=== PATIENT | male | born 1960 | race Caucasian/White ===

== ENCOUNTER → 2024-03-09 11:38 | Outpatient (CLI) | payer MEDICAID, SELFPAY ==
--- NOTE | 2024-03-09 10:15 | DI.CT_ITS ---
Exam(s) CT NECK CHEST W EXAM: CT NECK CHEST W CLINICAL HISTORY: neck swelling, supraclavicular nodule please IDR22.1 SWELLING M54.2 TECHNIQUE: Imaging Protocol: Axial computed tomography images with coronal and sagittal reformatted images were created and reviewed CONTRAST MATERIAL: Intravenous: Omnipaque 350 Contrast volume:structured data ml Oral: no COMPARISON: CR RIGHT SHOULDER COMPLETE from 03/07/2016 FINDINGS: Neck: Parotids/submandibular/thyroid gland: Normal. Lymphadenopathy: No enlarged lymph nodes identified.. Carotids/Jugular: Within normal limits. Soft tissues: The floor the mouth is unremarkable. The epiglottis and vocal cords are within normal limits. Bones: No fracture. No lytic or blastic lesions. Degenerative changes in the cervical spine. Visualized portions of the brain and orbits are unremarkable. Chest: Tracheobronchial tree: Patent where visualized. Mediastinum and Karen: No dominant adenopathy or fluid collection. Pulmonary parenchyma: No consolidation or dominant measurable mass. Pleura: No effusion or pneumothorax. Heart/Aorta: Thoracic aorta non-dilated. The heart is not dilated. No coronary artery calcifications are seen. Pulmonary arteries: No evidence of emboli. Bones: No fracture. No lytic or blastic lesions. Soft tissues: In marker was placed over the palpable abnormality the medial supraclavicular region. No abnormality seen in location. ABDOMEN: Liver: Enlarged. Hepatic steatosis. No measurable mass. Gallbladder and biliary tract: No radiodense calculus or dilation. Pancreas: Normal density, no abnormal calcifications or inflammatory process. Spleen: Normal. Upper portion of kidneys: Normal size, contour and axis. No radiodense stones or obstructive uropathy . No suspicious masses seen. Adrenal glands: No masses seen. Abdominal Aorta: Abdominal portion non-dilated. IMPRESSION: No abnormality identified in the neck and chest. RADIATION DOSE DELIVERED: 1,158.19mGy.cm Total DLP DATA REPOSITORY: All CT scans at this facility are submitted to the National Radiology Data Registry (NRDR) Dose Index Registry (DIR) with the [employer] (ACR). RADIATION OPTIMIZATION: All CT scans at this facility use at least one of these dose optimization te chniques: automated exposure control; mA and/or kV adjustment per patient size (includes targeted exa ms where dose is matched to clinical indication); or iterative reconstruction.
[2024-03-09 10:56] LABS: Abs Immature Grans 0.04 10^3/uL (0.0-0.06); Absolute Basophil Count 0.07 10^3/uL (0.0-0.2); Absolute Eosinophil Count 0.19 10^3/uL (0.0-0.7); Absolute Monocyte Count 0.42 10^3/uL (0.1-0.8); Absolute Neutrophil Count 4.45 10^3/uL (1.2-6.7); Basophils % 0.9 %; Eosinophils % 2.6 %; HCT 46.5 % (40.0-50.0); HGB 15.7 g/dL (13.5-17.5); Immature Grans % 0.5 %; Lymphocytes % 29.9 %; MCH 33.1 pg (27.0-33.0); MCHC 33.8 % (32.0-36.0); MCV 98 fL (80-95); Monocytes % 5.7 %; Neutrophils % 60.4 %; Platelet Count 153 10^3/uL (130-400); RBC 4.75 10^6/uL (4.36-5.78); RDW 13.7 % (11.8-14.1); WBC 7.37 10^3/uL (4.4-10.8)
[2024-03-09 11:31] LABS: ALT 25 U/L (16-63); AST 20 U/L (15-37); Alkaline Phosphatase 64 U/L (46-116); Anion Gap 6.6 mmol/L (3-11); BUN 10 mg/dL (7-18); Bilirubin, Total 0.6 mg/dL (0.2-1.0); CO2 27.4 mmol/L (21.0-32.0); CREATININE 0.9 mg/dL (0.70-1.30); Chloride 104 mmol/L (98-107); Estimated GFR 95.97 (mL/min/1.73m2); Glucose 115 mg/dL (74-106); Potassium 4.4 mmol/L (3.5-5.1); Sodium 138 mmol/L (136-145); Total Protein 8.7 g/dL (6.4-8.2)
[2024-03-09] MEDS: Normal Saline - Diluent 50 ML VIAL IJ (12:11)
[2024-03-09] MEDS: Omnipaque 350 MG/ML 100 ML BTL IJ (12:13)
== END ==
PROVIDERS: PCP Family Medicine; Visit Provider Physician Assistant
DX: R22.1 Localized swelling, mass and lump, neck (principal); M54.2 Cervicalgia
CPT/HCPCS: 70491; 80053; 71260; 84443; 85025; J3490

== ENCOUNTER → 2024-03-10 12:56 | Outpatient (CLI) | payer MEDICAID, SELFPAY ==
--- NOTE | 2024-03-10 09:30 | DI.US_ITS ---
Exam(s) US SOFT TISSUE HEAD OR NECK EXAM: US SOFT TISSUE HEAD OR NECK CLINICAL HISTORY: neck/supraclavicular neck swelling. ID. CT done R22.1 NECK SWELLING. TECHNIQUE: Ultrasound was performed using standard protocol. COMPARISON: CT CT NECK CHEST W from 03/09/2024 FINDINGS: Sonographic assessment utilizing grayscale and color Doppler imaging was performed and targeted to th e area of clinical concern. There is no evidence of a subcutaneous nodule to correspond to the palpable abnormality. There is a 1.8 x 1.7 x 1.9 cm isoechoic nodule in the right lobe of the thyroid gland. IMPRESSION: 1. No subcutaneous mass is seen to correspond to the palpable area as identified by the patient. 2. There does appear to be a 1.8 x 1.7 x 1.9 cm isoechoic nodule within the right lobe of the thyroid gland. A dedicated thyroid ultrasound may be considered for further evaluation. DATA REPOSITORY:
== END ==
PROVIDERS: PCP Family Medicine; Visit Provider Physician Assistant
DX: R22.1 Localized swelling, mass and lump, neck (principal); E04.1 Nontoxic single thyroid nodule
CPT/HCPCS: 76536

== ENCOUNTER → 2024-03-18 14:49 | Outpatient (CLI) | payer MEDICAID, SELFPAY ==
--- NOTE | 2024-03-18 14:15 | DI.RAD_ITS ---
Exam(s) XR FINGER RT INDEX EXAM: XR FINGER RT INDEX CLINICAL HISTORY: finger injury, proximal pain r/o open fx S69.90XA INJURY. TECHNIQUE: 2D digital imaging was performed of the right finger. Three views were obtained. PA/AP, oblique, and lateral views were obtained. COMPARISON: No exams were available for comparison FINDINGS: BONES: No acute fracture is present. No bony destructive lesion is seen. JOINTS: No dislocation present. SOFT TISSUE: No radiopaque foreign body is identified. No subcutaneous gas is seen. There is a well corticated osseous density seen at the dorsum of the finger which appears chronic. IMPRESSION: No evidence of acute fracture, dislocation, or subluxation. DATA REPOSITORY: RADIATION DOSE DELIVERED:
== END ==
PROVIDERS: PCP Family Medicine; Visit Provider Physician Assistant
DX: S69.91XA Unspecified injury of right wrist, hand and finger(s), initial encounter (principal)
CPT/HCPCS: 73140

== ENCOUNTER 2024-10-25 00:32 | Outpatient (CLI) | payer MEDICAID, SELFPAY ==
[2024-10-25] MEDS: Barium Sulfate 2% W/V-Berry Smoothie 450 ML BTL PO ×2 (12:57→12:58)
[2024-10-25 13:18] LABS: CREATININE 1.1 mg/dL (0.70-1.30); Estimated GFR 75.43 (mL/min/1.73m2)
[2024-10-25 13:29] LABS: Hemoglobin A1C 5.7 % (<5.7)
[2024-10-25 13:31] LABS: Calculated LDL 113 mg/dL (<100); Cholesterol 190 mg/dL (<200); HDL Cholesterol 58 mg/dL (40-60); Triglyceride 95 mg/dL (<150)
[2024-10-25] MEDS: Normal Saline - Diluent 50 ML VIAL IJ (14:55)
[2024-10-25] MEDS: Omnipaque 350 MG/ML 100 ML BTL IJ (14:56)
--- NOTE | 2024-10-25 15:05 | DI.CT_ITS ---
Exam(s) CT ABDOMEN PELVIS W EXAM: CT ABDOMEN PELVIS W CLINICAL HISTORY: lower abdominal pain,? diverticulitis,R10.9. TECHNIQUE: Imaging Protocol: Axial computed tomography images with coronal and sagittal reformatted images were created and reviewed CONTRAST MATERIAL: Intravenous: Omnipaque 350 Contrast volume:75 ml Oral: yes COMPARISON: No exams were available for comparison FINDINGS: ABDOMEN and PELVIS: Lung Bases: No acute findings. Liver: Normal density. No suspicious mass. Gallbladder and biliary tract: No radiodense calculus. No wall thickening or pericholecystic fluid. No biliary dilation. Pancreas: Normal density. No abnormal calcifications or inflammatory process. No evidence of mass. Spleen: Normal. Kidneys: Normal size, contour and axis. No radiodense stones. No obstructive uropathy. No suspicious masses seen. Bilateral simple cysts. No follow-up recommended. Adrenal glands: No masses seen. Vasculature: Abdominal aorta non-dilated. Soft tissues: Unremarkable. Bladder: Nearly empty, not well evaluated. Bowel: No obstruction. No bowel wall thickening. Appendix normal. Diverticulosis of the descending and sigmoid colon. No evidence of diverticulitis. Normal quantity of stool. Peritoneal cavity: No ascites. No focal collection. No mesenteric inflammatory response. No free air . Bones: Unremarkable for age. Reproductive organs: Unremarkable. Lymph nodes: No pathologically enlarged lymph nodes. IMPRESSION:: No acute abnormality in the abdomen or pelvis. Diverticulosis. No evidence of diverticulitis. RADIATION DOSE DELIVERED: 584.29mGy.cm Total DLP DATA REPOSITORY: All CT scans at this facility are submitted to the National Radiology Data Registry (NRDR) Dose Index Registry (DIR) with the [employer] (ACR). RADIATION OPTIMIZATION: All CT scans at this facility use at least one of these dose optimization te chniques: automated exposure control; mA and/or kV adjustment per patient size (includes targeted exa ms where dose is matched to clinical indication); or iterative reconstruction.
[2024-10-25 22:39] LABS: PSA, Screening 2.1 ng/mL (<=4.5)
== END 2024-10-25 00:52 ==
LOC: DI 00:32
PROVIDERS: PCP Nurse Practitioner Family; Visit Provider Physician Assistant
DX: K57.30 Diverticulosis of large intestine without perforation or abscess without bleeding (principal); Z13.1 Encounter for screening for diabetes mellitus; Z13.220 Encounter for screening for lipoid disorders; Z12.5 Encounter for screening for malignant neoplasm of prostate
CPT/HCPCS: 80061; 84153; 74177; 82565; 83036; J3490

== ENCOUNTER 2024-10-25 15:18 | Outpatient (REF) | payer MEDICAID, SELFPAY ==
[2024-10-25 15:09] LABS: C Diff PCR Negative (Negative)
[2024-10-26 11:44] LABS: Campylobacter PCR Negative (Negative); Salmonella PCR Negative (Negative); Shiga Toxin PCR Negative (Negative); Shigella/Enteroinvasive Ecoli Negative (Negative)
== END 2024-10-25 15:19 | disposition home or self-care (01) ==
LOC: LBN 15:18
PROVIDERS: PCP Nurse Practitioner Family; Visit Provider Physician Assistant
DX: R19.7 Diarrhea, unspecified (principal)
CPT/HCPCS: 87493; 87505; 87177

== ENCOUNTER 2024-12-09 06:08 | Day surgery (SDC) | payer MEDICAID, SELFPAY ==
--- NOTE | 2024-12-08 12:30 | W.PREOPHP ---
Assessment and Plan Assessment and plan (1) Encounter for screening colonoscopy: Status: Acute Assessment and plan: We reviewed the plan for screening colonoscopy as part of routine health maintenance one more time. Olivier had the chance to ask any other questions. We can proceed with colonoscopy as planned. History of Present Illness History of Present Illness Chief Complaint: screening colonoscopy Narrative: Olivier is referred fo screening colonoscopy. He suffers from abdominal discomfort. He recalls the onset of it as slightly crampy abdominal pain that was very quickly followed by diarrhea, which was a significant change in the character of his stools compared to previous. Diarrhea became more frequent, with fecal urgency that was typically associated with coughing. At his peak he was having multiple mostly liquid bowel movements every day. Stools have become a little more solid over the past few weeks, but remain quite thin compared to his baseline. He has ongoing abdominal bloating, and a sense of incomplete evacuation after stooling. As part of the workup, he underwent a CT scan in early October which showed diverticulosis, without any other clear pathology. Stool studies are negative for Campylobacter C. difficile Salmonella and Shigella. It was negative for ova and parasites as well. He tells me he underwent a screening colonoscopy maybe 13 years ago. As he understands he had diverticulosis at that time, but was otherwise negative. He has never had any abdominal surgery. Since his last office encounter, there have been no major interval changes with regards to the history. PFSH All Active Problems Encounter for screening colonoscopy (Acute) Essential hypertension (Acute) Anxiety (Chronic) Chronic neck pain (Acute) BPH (benign prostatic hyperplasia) (Chronic) Insomnia (Acute) JOSE C (generalized anxiety disorder) (Acute) Depression (Chronic) HLD (hyperlipidemia) (Acute) Thyroid nodule (Acute) Right-sided [facility]NA-[facility] [place] 2016 benign Clavicular enlargement (Acute) Medical History Tenosynovitis of finger Finger fracture Surgical History S/P nerve repair (~03/2024) Right index finger, [facility] [place] H/O knee surgery H/O shoulder surgery H/O hernia repair Pt. denies Family History Mother Cancer Depression Father Depression Social History Smoking/Tobacco Use Status: Former Tobacco Use Quit Date: 09/21/24 Smoking risk assessment performed?: Yes Alcohol Intake: current Alcohol Intake frequency: a few times a week Alcohol type: beer Drug use: Never Substance use type: does not use Adopted: No Household members: children Housing: apartment Number of Children: 3 number of grandchildren: 3 Communication Needs: None Education Level: high school Do you need help understanding health information?: Never current occupation: retired Sexually active: Yes Do you think of yourself as: straight/heterosexual Current gender identity: male What is your relationship status?: don't know How often do you talk on the phone with friends or family?: decline to answer How often do you get together with friends or relatives?: decline to answer How often do you attend christian or restorationist services?: decline to answer Do you belong to any clubs or organized social groups?: decline to answer Panel score (0-1 are the most socially isolated patients): 0 NHANES result reviewed/action taken: Yes Seatbelt use: always Helmet use: Yes Helmet use: always Drive intox or ride w/intox transit mixer driver: No Firearms in home: Yes Firearms unloaded and locked: Yes Do you feel safe at home: Yes Do you feel safe in your relationship?: Yes Victim of physical abuse: No Victim of emotional abuse: No Victim of sexual abuse: No Would you like helpful sources: No Meds Allergies and Home Medications Allergies Allergy/AdvReac Type Severity Reaction Status Date / Time No Known Allergies Allergy Verified 12/09/24 06:20 Home Medications ?Medication ?Instructions ?Recorded ?Confirmed ?Type sertraline 100 mg tablet (Zoloft) 100 mg PO BID #180 tabs 08/01/24 12/09/24 Rx trazodone 100 mg tablet 100 mg PO QHS #90 tabs 08/01/24 12/09/24 Rx lisinopril 10 mg tablet 10 mg PO DAILY #90 tabs 10/13/24 12/09/24 Rx Exam Const General: cooperative, healthy appearing and not in acute distress Neck Neck: normal visual inspection, no lymphadenopathy and supple Resp Effort & Inspection: normal respiratory effort Auscultation: clear to auscultation bilaterally Cardio Jugular venous pressure: no JVD Rate: regular rate Rhythm: regular rhythm Heart Sounds: S1 normal and S2 normal GI Inspection: normal to inspection Palpation: soft, no guarding, no hernias and nontender Percussion: normal to percussion Auscultation: normal bowel sounds Neuro General: patient alert, patient awake and patient oriented x3 Psych Appearance: grossly normal
--- NOTE | 2024-12-08 12:33 | W.PM.DSUDISC ---
Date of service: 12/09/24 Discharge Plan Disposition Patient Disposition: Home Condition: Good Discharge Details Reason For Visit: screening colonoscopy Attending Provider: Gold Plasencia Primary Care Provider: Rufino Cintron Home Meds and New Rx's Prescriptions: New tramadol 50 mg tablet 50 mg PO Q8H PRNQty: 12 0RF Rx Instructions: Take 1 tablet by mouth up to every 8 hours if needed for more severe pain. Continued trazodone 100 mg tablet 100 mg PO QHS Qty: 90 3RF sertraline [Zoloft] 100 mg tablet 100 mg PO BID Qty: 180 3RF lisinopril 10 mg tablet 10 mg PO DAILY Qty: 90 3RF Discontinued polyethylene glycol 3350 17 gram/dose powder 238 g PO ONCE Qty: 238 0RF Rx Instructions: For Colonoscopy bowel prep, as directed by office bisacodyl 5 mg tablet,delayed release (DR/EC) 5 mg PO ONCE Qty: 4 0RF Rx Instructions: Per Colonoscopy bowel prep instructions Discharge Instructions Instructions: Hemorrhoids, Colon polyps, Hemorrhoid Banding, Diverticulosis Additional Instructions: Olivier, it was great seeing you today, and I hope you feel well after the procedure. Everything went very smoothly. There are 3 findings to know about. The first is that I removed a few polyps today. In total, there were 5 polyps. 2 of these were medium to large in size, but none of their features were worrisome to the naked eye. The other 3 polyps were quite small. All of these polyps were removed today, and all will be sent to the pathologist for their review. The nature of these polyps is what will guide the timing of the next colonoscopy. Those results usually take about a week or 2 to get back, but once I have that information I will be in touch. As we knew, you also have diverticulosis. These are weak spots in the muscular layer of the colon wall. These cause pockets or pouches to form. My general approach to management of diverticular disease is to maintain a diet that is rich in fiber, stay well-hydrated, and avoid symptoms of constipation. Most of my patients benefit from using something like Metamucil (any product that contains psyllium is a great choice) to supplement her diet. A well-balanced diet includes about 20 to 30 g of fiber per day. Most of the phuj-puz-voubini products are about 4 g of fiber per tablespoon. I usually recommend the patient's start with about a tablespoon a day mixed in 8 ounces of water or some other simple beverage, and titrate up to about 10 to 15 g/day to complement your regular diet. Other patients prefer tablets or Gummies. It really does not matter since none of the fiber is actually absorbed. It is all used to augment the character and consistency of the stools. The third finding is that you did have some internal hemorrhoids. I did perform banding of these hemorrhoids today, so hopefully that will help with some of your symptoms. The bands can be a little bit painful, so I recommend using Tylenol and ibuprofen as needed for discomfort. I also provided a prescription for a medication called tramadol which is much stronger than ykoc-xgk-ukgxici medications to help if you need it. Use it only if you need it. I also recommend using a stool softener such as the fiber mentioned above, or other patients prefer MiraLAX for the first few days after hemorrhoid banding. If you do experience anal discomfort, soaking your backside in some warm water mixed with Epsom salts or baking soda can often help provide some relief. This is known as a sitz bath. I usually recommend patients do it once in the morning, once in the evening, and after each bowel movement if needed for discomfort. It does not provide any other significant medical therapy, so if you are not feeling pain, then it probably would not be helpful. As I mentioned above, once we get the results from the polyp analysis, my office will be in touch. If you need anything in the meantime, please do not hesitate to ask. 1. If tolerated, consume a soft, low fiber diet for 1-2 days. 2. Do not drive, drink alcohol, operate machinery, make critical decisions, or do activities that require coordination or balance for 24 hours. 3. Because air was put into your colon during the procedure, expelling air from your rectum (passing gas or farting) is normal. 4. You may not have a bowel movement for 1-3 days because of the colonoscopy prep. This is normal. 5. Go directly to the emergency room if you notice any of the following: Develop chills (warm to touch), or if you have a thermometer and your temperature is above 101 Difficulty breathing or difficultly swallowing Persistent vomiting Severe abdominal pain, other than gas cramps Severe chest pain Black, tarry stools Any bleeding ? exceeding one tablespoon 6. Call your physician if the site where your intravenous was started becomes red, swollen, painful, and warm to touch. 7. Your physician has reviewed your pre-procedure medications. Please continue to take those medications as previously ordered. You will be given specific information/education regarding any changes to your medications before leaving. Activity:: Activity as Tolerated Diet:: As Tolerated Discharge Orders Discharge Orders: Discharge Order (Routine); Ordered 12/08/24 Ordered By: Gold Plasencia DS: Diagnosis Discharge Diagnosis (1) Encounter for screening colonoscopy: Status: Acute Asessment and Plan: Follow-up on polypectomy results
--- NOTE | 2024-12-08 12:34 | W.COLOREPORT ---
Date of service: 12/09/24 Time of Service: 08:26 Colonoscopy Report Date of procedure: 12/09/24 Pre-op diagnosis general: screening colonoscopy Post-op diagnosis procedure note: other (Colon polyps, diverticulosis, internal hemorrhoids) Procedure: colonoscopy with polypectomy and internal hemorrhoid banding x 2 Surgeon: Gold Plasencia Anesthesia Type: General:No Airway Estimated blood loss (mL): 5 Pathology: other (0.75 cm flat cecal polyp, 0.75 cm flat ascending colon polyp, 0.25 cm flat polyp at 55 cm, 0.25 cm rectal polyps x 2 (sent a single specimen)) Complications: None Disposition: same day 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 Perineum and skin were normal, as was the anal verge.?Next, I performed a digital rectal exam.? I did not appreciate any abnormal findings.? Next, I advanced a colonoscope into the rectal vault.? I performed retroflexion.? There are internal hemorrhoids.? Using insufflation, I then advanced the colonoscope beyond the rectal folds and into the sigmoid colon before advancing towards the cecum.? The quality of the prep was excellent.? There was sigmoid diverticulosis, and great care was taken to traverse the segment. The scope was noted to be in the cecum by identification of the ileocecal valve and appendiceal orifice. There was a 0.75 cm flat cecal polyp. Narrowband imaging was used to assist with analysis. This polyp appeared adenomatous. This was removed with a energize snare polypectomy, and resection was complete. I then began withdrawing the colonoscope using repeated irrigation as necessary for full evaluation of the colonic mucosa. Within the ascending colon was another 0.75 cm flat polyp. This was also retrieved with a energize snare polypectomy. A 0.25 cm flat polyp was found around 55 cm from the anus. This was removed with cold forceps. Beginning around 35 cm from the anal verge was the sigmoid segment affected by diverticulosis. This extended down to the upper portion of the rectum. Within the upper portion of the rectal vault were 2 polyps. These were immediately adjacent to 1 another. Each of these was flat, and each was less than 0.25 cm. These polyps were removed with cold forceps and sent as a single specimen. There was minimal bleeding from the sites. Once the scope was withdrawn to the level of the rectum, great care was taken to examine portions of the rectal folds.? Finally, the scope was withdrawn. Next, with a fiberoptic Lit anoscopy, I performed internal hemorrhoid banding of left lateral column, and right anterior column. And the patient was brought to the same-day surgery recovery unit as the anesthetic wore off. ?The findings and instructions were shared with the patient prior to discharge. [place] Bowel Prep [place] Bowel Prep Right Colon: 2 Left Colon: 2 Transverse Colon: 3 Total Score: 7
[2024-12-09 06:21] VITALS: BP 134/90; PULSE 75; RESP 20; TEMP 37; O2SAT 99
[2024-12-09] MEDS: Lactated Ringers 1,000 ML 80 ML IV (07:04)
--- NOTE | 2024-12-09 07:06 | W.ANESPRE ---
General Info Date of Service Date Performed: 12/09/24 Height: 5 ft 8.5 in Weight: 92.8 kg Body Mass Index (BMI): 30.7 Surgical Procedure: Operation Date: 12/09/24 07:35 Proposed Procedure Side Surgeon nuris Plasencia MD Meds Allergies and Home Medications Allergies Allergy/AdvReac Type Severity Reaction Status Date / Time No Known Allergies Allergy Verified 12/09/24 06:20 Home Medication ?Medication ?Instructions ?Recorded sertraline 100 mg tablet (Zoloft) 100 mg PO BID #180 tabs 08/01/24 trazodone 100 mg tablet 100 mg PO QHS #90 tabs 08/01/24 lisinopril 10 mg tablet 10 mg PO DAILY #90 tabs 10/13/24 Current Visit Medications: Current Medications Generic Name Dose Route Start Last Admin Trade Name Freq PRN Reason Stop Dose Admin Ringer's Solution 1,000 mls @ 80 mls/hr 12/09/24 06:00 12/09/24 07:04 IV 12/09/24 23:59 80 mls/hr INFUSION YESSENIA Administration IV Miscellaneous Supplies 1 each 12/09/24 06:00 Iv Access IV 12/09/24 23:59 DIRECTED YESSENIA Ondansetron HCl 4 mg 12/08/24 12:36 Ondansetron 4 Mg/2 Ml Vial IVP 01/07/25 12:35 Q4H PRN PRN Nausea / Vomiting Sodium Chloride 0 ml 12/09/24 06:00 Normal Saline Flush 10 Ml Syr IV 12/09/24 23:59 PRN PRN Sodium Chloride 0 ml 12/09/24 06:00 Normal Saline 10 Ml Vial IJ 12/09/24 23:59 DIRECTED PRN Sterile Water 0 ml 12/09/24 06:00 Water,Injection,Sterile 10 Ml Vial IJ 12/09/24 23:59 DIRECTED PRN PFSH Active Problems Active Problems: Problem Status Onset Code Encounter for screening colonoscopy Acute Z12.11 Essential hypertension Acute I10 Anxiety Chronic F41.9 Chronic neck pain Acute M54.2, G89.29 BPH (benign prostatic hyperplasia) Chronic N40.0 Insomnia Acute G47.00 JOSE C (generalized anxiety disorder) Acute F41.1 Depression Chronic F32.A HLD (hyperlipidemia) Acute E78.5 Thyroid nodule Acute E04.1 Clavicular enlargement Acute M89.319 Medical History Medical History Tenosynovitis of finger Finger fracture Surgical History Surgical History S/P nerve repair (~03/2024) Right index finger, [facility] [place] H/O knee surgery H/O shoulder surgery H/O hernia repair Pt. denies Tobacco Smoking/Tobacco Use Status: Former Tobacco Use Passive smoking exposure: No Alcohol Alcohol Intake: current Alcohol intake frequency: a few times a week Alcohol type: beer Substance Use Substance use: Never Substance use type: does not use Vital Signs and Lab Results Vital Signs Most Recent Vital Signs in EMR: Most Recent Vital Signs Temp Pulse Resp BP Pulse Ox 37 C 75 20 134/90 99 12/09/24 06:21 12/09/24 06:21 12/09/24 06:21 12/09/24 06:21 12/09/24 06:21 Lab Results Blood Type / Crossmatch: No Data to Display Complete Blood Count: No Data to Display Complete Metabolic Panel: No Data to Display Liver Function Panel: No Data to Display Coagulation Panel: No Data to Display Cardiac Panel: No Data to Display Arterial Blood Gas: No Data to Display Venous Blood Gas: No Data to Display Pancreas Panel: No Data to Display Thyroid Panel: No Data to Display Infectious Disease: No Data to Display Blood Cultures: No Data to Display Toxicology Panel: No Data to Display Anesthesia Assessment and Plan Anesthesia History Personal History: No History of Anesthesia Complications Family History: No Family History of Anesthesia Complications Exercise Tolerance Exercise Tolerance: Metabolic Equivalents>4 Pertinent Negatives Pertinent Negatives: No Symptoms of GERD Cardiac & Pulmonary Exam Cardiac Exam: Normal S1/S2 Heart Sounds Pulmonary Exam: Clear Bilateral Breath Sounds Implantable Cardiac Device Does patient have a Pacemaker or an ICD?: No Airway Exam Known Difficult Airway: No Mallampati Class: 2 Mouth Opening: Normal (> 3cm) Thyromental Distance: Greater than 3 cm Neck Range of Motion: Full ROM Neck Circumference: Normal Teeth Condition: Normal Dentition ASA Classification ASA Score: ASA 2 Emergency Case?: No NPO Status NPO Status: NPO Clears >2 hours, Solids >8 hours Anesthesia Plan Resuscitation Status: Full Code Anesthesia Technique: General Anesthesia Airway Planned: Natural Airway Monitors Used: Standard Monitors
--- NOTE | 2024-12-09 08:00 | BOWEL_PTH ---
PATIENT: Olivier Jaramillo LOC: [facility] U#:[id number] AGE/SX: 64/M ROOM: RE12/09/[address]: Gold Plasencia MD : 1960 BED: DIS: 12/09/2024 SPEC #: [id number] RECD: 12/09/24 12:26 STATUS: SERENITY REQ #: [id number] ANTONIETA: 12/09/24 08:[address]: Gold Plasencia DEPT: Surgical Specimen RECD BY: Rosie Bill ENTERED: 12/09/24 12:27 SP TYPE: Bowel OTHR DR: Rufino Cintron, HYDRAULICS ENGINEER Tissues: 1 - BIOPSY BOWEL 2 - BIOPSY BOWEL 3 - BIOPSY BOWEL 4 - BIOPSY BOWEL Procedures: GROSS AND MICRO LEVEL 4 Comments: [id number]
[2024-12-09 08:03] VITALS: BMI 30.7
[2024-12-09 08:14] VITALS: BP 113/77; PULSE 72; RESP 18; TEMP 36.6; O2SAT 94
--- NOTE | 2024-12-09 08:27 | W.ANESPOSTOP ---
Postoperative Evaluation Date, Time and Location Date Performed: 12/09/24 Time Performed: 08:28 Patient Location: Day Surgery Unit Vital Signs Most Recent Imported Vital Signs: Most Recent Vital Signs Temp Pulse Resp BP Pulse Ox 36.6 C 72 18 113/77 94 12/09/24 08:14 12/09/24 08:14 12/09/24 08:14 12/09/24 08:14 12/09/24 08:14 Pain Score Most Recent Pain Score: Most Recent Pain Score Pain Level 0 12/09/24 08:14 Assessment Mental Status: Awake (Alert & Oriented to Patient Baseline) Airway and Respiratory Function: Patent airway with normal (patient baseline) respiratory exam Cardiovascular Function: Hemodynamically Stable Hydration Status: Adequately Hydrated Nausea & Vomiting: No Nausea or Vomiting Pain: Pt. Denies Any Pain Peripheral Nerve Block: Patient did not receive a nerve block
[2024-12-09 08:41] VITALS: BP 130/82; PULSE 62; RESP 18; TEMP 36.4; O2SAT 95
== END 2024-12-09 09:00 | disposition home or self-care (01) ==
LOC: SUR 06:08
PROVIDERS: PCP Nurse Practitioner Family; Visit Provider Surgery
PROC: 0DJD8ZZ Inspection of Lower Intestinal Tract, Via Natural or Artificial Opening Endoscopic (ICD-10-PCS; CPT 45378; principal; 2024-12-09 07:30)
PROC: (CPT 45385; 2024-12-09 07:30)
DX: Z12.11 Encounter for screening for malignant neoplasm of colon (principal); D12.0 Benign neoplasm of cecum; K57.30 Diverticulosis of large intestine without perforation or abscess without bleeding; K64.8 Other hemorrhoids; D12.2 Benign neoplasm of ascending colon; D12.5 Benign neoplasm of sigmoid colon
CPT/HCPCS: 45385; 45380; 45398; 88305; J2704

== ENCOUNTER 2025-04-20 02:12 | Outpatient (CLI) | payer MEDICAID, SELFPAY ==
--- NOTE | 2025-04-20 08:15 | DI.US_ITS ---
Exam(s) US THYROID EXAM: US THYROID CLINICAL HISTORY: 1 year f/u, thyroid nodule, E04.1, nontoxic thyroid nodule. TECHNIQUE: Ultrasound thyroid performed using standard protocol. COMPARISON: US US SOFT TISSUE HEAD OR NECK from 03/10/2024 FINDINGS: RIGHT THYROID LOBE: Measures 2.5 cm AP x 2.8 cm wide x 5.1 cm craniocaudal There is a single solid dominant nodule in the lateral aspect of the right thyroid lobe. This corresponds to the nodule which was incidentally noted on the soft tissue neck ultrasound performed in February 2024. Details of this nodule are as follows: Size: This nodule measures 1.7 x 2.0 x 1.8 cm Composition: Solid-2 points Echogenicity: Isoechoic-1 point Shape: Taller than wider in the transverse plane-3 points Margin: Smooth-0 points Echogenic Foci: None-0 points Total Points for this nodule: 6 ACR Ti-Rads Category: TR4 This TR 4 level nodule requires ultrasound-guided FNA as it measures greater than 1.5 cm ISTHMUS: Normal thickness. There are no nodules in the isthmus. LEFT THYROID LOBE: Measures 2.3 cm AP x 2.4 wide x 5.6 cm craniocaudal There are 3 nodules in the left lobe. The most significant is in the inferior aspect of the left lobe, with details of this nodule as follows: Size: This nodule measures 1.8 x 1.5 x 1.2 cm Composition: Solid-2 points Echogenicity: Isoechoic-1 point Shape: Taller than wider in the transverse plane-3 points Margin: Smooth-0 points Echogenic Foci: Contains punctate echogenic foci-3 points Total points for this nodule: 9 ACR Ti-Rads Category: 5 This TR 5 level nodule also requires ultrasound-guided FNA as it measures greater than 1 cm. The other 2 smaller nodules in the left thyroid lobe can be followed conservatively. They do not qualify for biopsy LYMPH NODES: There are multiple lymph nodes both sides the neck. These have benign appearance on the right side. In left side of the neck 1 of the lymph nodes appears slightly prominent, measuring 1.9 x 0.6 x 1.4 cm. IMPRESSION: 1. There is a solid nodule in the right thyroid lobe as described above which requires biopsy/ultrasound-guided FNA 2. There is also a solid nodule towards the inferior aspect of the left thyroid lobe which also requires ultrasound-guided FNA 3. There are multiple small lymph nodes both sides the neck. There is 1 lymph node which is slightly larger than the other in left side of the neck measuring 19 x 6 x 14 mm. DATA REPOSITORY:
== END 2025-04-20 02:32 ==
PROVIDERS: PCP Nurse Practitioner Family; Visit Provider Registered Nurse Maternal Newborn
DX: E04.1 Nontoxic single thyroid nodule (principal)
CPT/HCPCS: 76536

== ENCOUNTER → 2025-08-15 13:27 | Outpatient (CLI) | payer MEDICAID, SELFPAY ==
--- NOTE | 2025-08-15 12:45 | DI.RAD_ITS ---
Exam(s) XR LUMBAR SPINE COMPLETE EXAM: XR LUMBAR SPINE COMPLETE CLINICAL HISTORY: back pain, right with radiculopathy,m54.9. TECHNIQUE: 2D digital imaging was performed of the lumbar spine. Five images were obtained. AP, lateral, right oblique, left oblique and L5-S1 spot views were obtained. COMPARISON: CR LUMBAR SPINE COMPLETE from 05/05/2013 FINDINGS: BONES: No fracture or destructive lesion. There are osteophytes seen at multiple levels of the lumbar spine. There are degenerative changes seen at the facets at L4-5 and L5-S1. DISKS: There is mild disc space narrowing at L4-L5. ALIGNMENT: Lumbar spinal alignment is within normal limits. No spondylolysis or spondylolisthesis. SOFT TISSUE: Normal. IMPRESSION: 1. There is no acute fracture or subluxation in the lumbar spine. 2. Degenerative changes seen in the lumbar spine. DATA REPOSITORY: RADIATION DOSE DELIVERED:
== END ==
LOC: DI 13:28
PROVIDERS: PCP Nurse Practitioner Family; Visit Provider Nurse Practitioner Acute Care
DX: M54.9 Dorsalgia, unspecified (principal)
CPT/HCPCS: 72110